=== PATIENT | male | born 1965 | race Caucasian/White ===

== ENCOUNTER → 2017-05-08 | Day surgery (SDC) | payer BC ==
[~2017-05-08] MED LIST: ASPIRIN PO; GLUCOPHAGE500 MG PO; HYDROCHLOROTHIA25 MG PO; KEFLEX500 MG PO; LISINOPRIL10 MG PO; LOTREL 5/20 MG1 CAP PO; OMEPRAZOLE40 M1 PO; RYBIX ODT50 MG PO; SIMVASTATIN40 MG PO; TOPROL XL100 MG PO
--- NOTE | ~2017-05-08 | OR ---
Unit #: [id number] #: [id number] Patient: CONSTANCE RENTERIA [id number] [address] [address] [id number] MR#: [id number] NAME: CONSTANCE RENTERIA. ROOM: Date of Procedure: 05/08/2017 Admission Date: 05/08/2017 Surgeon: Josr Tsang M.D. : 1965 Attending Physician: Josr Tsang M.D. Primary Care Physician: Daniel Murphy M.D. OPERATIVE REPORT PREOPERATIVE DIAGNOSIS Screening colonoscopy. POSTOPERATIVE DIAGNOSIS Screening colonoscopy. PROCEDURE PERFORMED 1. Colonoscopy to cecum. 2. Polypectomy at 60 cm with electrocautery snare. 3. Polypectomy with electrocautery snare at 25 cm with hemoclip placement. ANESTHESIA Monitored anesthesia care. FINDINGS The patient was found to have a rare sigmoid diverticulum. Mild internal hemorrhoids. The polyp was excised at 60 cm completely with good hemostasis and at 25 cm with good hemostasis with reapproximate of the mucosa with a hemoclip. SPECIMENS Sent to pathology. COMPLICATIONS None apparent. CONDITION The patient tolerated the procedure well. INDICATIONS FOR PROCEDURE The patient is a 51-year-old white male, who presents at this time for screening colonoscopy. DESCRIPTION OF PROCEDURE After obtaining informed consent, the patient was brought to the endoscopy suite and after adequate monitored anesthesia care, had the colonoscope placed through the anus and slowly advanced to the level of cecum without difficulty with the lumen always in view. The cecum was normal as was the ileocecal valve. The ascending colon was normal as was the hepatic flexure, transverse colon, and splenic flexure. At 65 cm, a small polyp was found. It was excised completely with electrocautery snare, retrieved with a mucus trap, and sent to pathology. The remaining portion of the Unit #: [id number] #: [id number] Patient: CONSTANCE RENTERIA descending colon and sigmoid colon were normal except for a few rare scattered diverticula. At 25 cm, another polyp was found. It was excised completely with electrocautery snare, retrieved with a mucus trap, and sent to pathology. There was good hemostasis. However, the mucosa was reapproximated with a hemoclip. The remaining portion of the sigmoid colon, rectosigmoid, and rectum were all within normal limits. On retroflexing in the rectum to the anorectal junction, the patient was found to have some mild internal hemorrhoids. The scope was removed without difficulty. The patient tolerated the procedure well and went from the endoscopy suite to recovery area in stable condition. RECOMMENDATIONS High-fiber diet, lots of liquids, tucks or wipes p.r.n. Diverticular sheet given. Call office for pathology on . Dictated by... Josr Tsang M.D. KURTIS/nati TD: 05/08/2017 13:34 JOB #: [id number] [facility] OPERATIVE REPORT Page 1 of 1 X Josr Tsang MD X PROCEDURE OPERATIVE NOTE
== END | disposition home or self-care (01) ==
LOC: COPS 04-10 13:00
DX: Z12.11 Encounter for screening for malignant neoplasm of colon (principal); D12.6 Benign neoplasm of colon, unspecified; K57.30 Diverticulosis of large intestine without perforation or abscess without bleeding; K64.8 Other hemorrhoids; K21.9 Gastro-esophageal reflux disease without esophagitis; I10 Essential (primary) hypertension; E11.9 Type 2 diabetes mellitus without complications; E78.00 Pure hypercholesterolemia, unspecified; Z79.84 Long term (current) use of oral hypoglycemic drugs; Z79.899 Other long term (current) drug therapy
CPT/HCPCS: 82947; 88305; J2250